=== PATIENT | female | born 1985 | race Asian ===

== ENCOUNTER 2019-04-06 12:10 | Inpatient (IN) | payer OTHER ==
[2019-04-06] MEDS ORDERED: ELECTROLYTE-148 SOLN 1,000 ML IV SCH (12:30)
[2019-04-06 13:27] VITALS: BMI 39.4
[2019-04-06 13:37] LABS: BASO % 0.2 % (0-2.0); HEMATOCRIT 36.6 % (32.4-45.2); HEMOGLOBIN 12.4 GM/dL (10.7-15.3); LYMPH % 11.1 % (8-40); MCH 29.9 pg (25.7-33.7); MCHC 33.8 g/dl (32.0-36.0); MEAN CELL VOLUME 88.3 fl (80-96); MEAN PLT VOLUME 9.9 fl (7.5-11.1); MONO % 8.6 % (3.8-10.2); NEUT % 79.1 % (42.8-82.8); PLATELET COUNT 255 K/MM3 (134-434); RBC 4.14 M/mm3 (3.60-5.2); RDW 14.3 % (11.6-15.6); WHITE BLOOD COUNT 12.9 K/mm3 (4.0-10.0)
[2019-04-06] MEDS ORDERED: OXYTOCIN 30 UNITS in 0.9% NS 30 UNIT/500 ML INFUS.BAG IVPB ONE (13:44)
[2019-04-06] MEDS ORDERED: OXYTOCIN 30 UNITS in 0.9% NS 30 UNIT/500 ML INFUS.BAG IVPB SCH (13:45)
[2019-04-06 13:51] LABS: BLOOD UREA NITROGEN 11.1 mg/dL (7-18); CALCIUM 9.4 mg/dL (8.5-10.1); CREATININE 0.6 mg/dL (0.55-1.3); POTASSIUM 4.5 mmol/L (3.5-5.1)
[2019-04-06 13:56] LABS: INR 1.02 (0.83-1.09)
[2019-04-06 13:59] LABS: ACTIVATED PTT 29.6 SECONDS (25.2-36.5)
--- NOTE | 2019-04-06 16:04 | HP ---
Past Medical History - Admission History of Present Illness: 34 yo @ 38 2/7 wks by first trimester ultrasound, EDC 04/18/2019 complicated by: 1. Obesity, starting BMI 36 19 lb wt gain 2. GDMA2 - diagnosed early GCT (suspect pregestational GDM) on Insulin NPH 60 qHS Most recent ultrasound 04/04/19 2980g (31%ile) She reports leakage of fluid today at 1000. She reports movement, denies vaginal bleeding. Reports contractions History Source: Patient Limitations to Obtaining History: No Limitations - Past Medical History Cardiovascular: No: HTN Pulmonary: No: Asthma ...: 1 ...Para: 0 ...Term: 0 ...: 0 ...Spon : 0 ...Induced : 0 ...Multiple Gestation: 0 ...LMP: 07/11/18 ... Weeks Gestation by Dates: 38.1 ...EDC by Dates: 04/17/19 ...EDC by Sono: 04/18/19 Endocrine: Yes: Diabetes Mellitus - Past Surgical History Past Surgical History: Yes: None Hx Myomectomy: No Hx Transabdominal Cerclage: No - Smoking History Smoking history: Never smoked Have you smoked in the past 12 months: No - Alcohol/Substance Use Hx Alcohol Use: No Home Medications - Allergies Allergies/Adverse Reactions: Allergies Allergy/AdvReac Type Severity Reaction Status Date / Time No Known Allergies Allergy Verified 04/06/19 15:20 - Home Medications Home Medications: Ambulatory Orders Insulin Detemir [Levemir Flextouch] See Protocol SQ PRN PRN 04/06/19 Vit No.129/Iron/Folic [ One Daily Tablet] 1 tab PO DAILY Family Disease History - Family Disease History Family History: Denies Review of Systems - Review of Systems Constitutional: reports: No Symptoms Neck: reports: No Symptoms Cardiovascular: reports: No Symptoms Respiratory: reports: No Symptoms Genitourinary: reports: No Symptoms Musculoskeletal: reports: No Symptoms Neurological: reports: No Symptoms Endocrine: reports: No Symptoms Psychiatric: reports: No Symptoms Physical Exam - Maternity Vital Signs: Vital Signs Temperature 97.9 F 04/06/19 14:00 Pulse Rate 74 04/06/19 14:00 Respiratory Rate 18 04/06/19 14:00 Blood Pressure 99/60 04/06/19 14:00 O2 Sat by Pulse Oximetry (%) Constitutional: Yes: Well Nourished, No Distress, Calm Cardiovascular: Yes: Regular Rate and Rhythm Lungs: Clear to auscultation - Physical Exam Psychiatric: Yes: Alert, Oriented - Labs Lab Results: CBC, BMP 04/06/19 13:00 04/06/19 13:00 PNL: AB Positive, antibody negativ; RPR NR; HIV neg; Varicella, Rubella Immune; HBs Ag neg; HCV neg; Hg Zoey AA; CF/SMA/Fx neg; GBS neg; early GCT pos (as above ) Hemorrhage Risk Assessment - Risk Factors Medium Risk Factors: Yes: None High Risk Factors: Yes: None Risk Score: 1 Risk Level: Medium Risk Assessment/Plan 34 yo GDM, PROM 1. Admit to L&D 2. GBS neg 3. Will check FS Q 4H then Q 2 in active labor Will cover with sliding scale if needed 4. Category I FHT 5. Will proceed with expectant management
[2019-04-06] MEDS ORDERED: PROMETHAZINE HCL 25 MG/1 ML VIAL ONE (20:37)
[2019-04-06] MEDS ORDERED: BUTORPHANOL TARTRATE 1 MG/ML VIAL ONE ×2 (20:37)
[2019-04-06] MEDS ORDERED: DEXTROSE 5%-LACTATED RINGERS 1,000 ML IV SCH (21:00)
[2019-04-06] MEDS ORDERED: PROMETHAZINE HCL 25 MG/1 ML VIAL IVPB ONE (21:00)
[2019-04-06] MEDS ORDERED: BUTORPHANOL TARTRATE 1 MG/ML VIAL IVPB ONE (21:00)
[2019-04-06] MEDS ORDERED: FENTANYL/BUPIVACAINE/NS/PF - PCEA - 50 ML DISP.SYRIN EP ONE (23:43)
[2019-04-06] MEDS ORDERED: FENTANYL/BUPIVACAINE/NS/PF - PCEA - 50 ML DISP.SYRIN EP SCH (23:45)
[2019-04-06] MEDS ORDERED: NALOXONE HCL 0.4 MG/ML VIAL IVPUSH PRN (23:58)
[2019-04-07] MEDS ORDERED: LIDO 2%/EPI 1:200000 PRESRVFRE (20 ML SDVIAL) ONE (00:02)
[2019-04-07] MEDS ORDERED: FENTANYL/BUPIVACAINE/NS/PF - PCEA - 50 ML DISP.SYRIN EP ONE ×2 (04:00→08:17)
[2019-04-07] MEDS ORDERED: AMPICILLIN - 2 GM in SODIUM CHLORIDE 100 ML IVPB ONE (05:33)
--- NOTE | 2019-04-07 05:33 | PN ---
Ante-Partal Exam - Subjective Subjective: Patient comfortable s/p epidural Vital Signs: Vital Signs Temperature 98.4 F 04/07/19 04:00 Pulse Rate 93 H 04/07/19 04:30 Respiratory Rate 20 04/07/19 04:30 Blood Pressure 115/73 04/07/19 04:30 O2 Sat by Pulse Oximetry (%) 100 04/07/19 04:30 Bleeding: No Headache: No Visual changes: No Right upper quadrant pain: No - Contractions Contractions: Yes Regularity: Regular Intensity: Unaware Monitor Mode: External - Exam during Labor Heart Rate: 145 Variability: Moderate Category: I Monitor Accelerations: Present Monitor Decelerations: None Exam: Vaginal Dilatation (cm): 8 Effacement (%): 90 Presentation: Vertex Station: -1 - Intrapartum Hemorrhage Risk Medium Risk Factors: None High Risk Factors: None Risk Score: 0 Risk Level: Low Risk - Assessment/Plan Assessment/Plan: 34 yo PROM, pitocin augmentation, good cervical change 1. continue pitocin per protocol 2. GBS negative, patient ROM > 18 hours, to start ampicillin per hospital protocol 3. Category I FHT 4. pain well controlled with epidural 5. Proceed with expectant management
[2019-04-07] MEDS ORDERED: OXYTOCIN 20 UNITS in 0.9% NS 20 UNIT/1,000 ML INFUS.BAG IV ONE ×2 (07:45→13:28)
[2019-04-07] MEDS ORDERED: AMPICILLIN - 1 GM in SODIUM CHLORIDE 100 ML IVPB SCH (09:34)
--- NOTE | 2019-04-07 11:51 | PROC ---
Obstetrical Vaccum Device - Doc. Following Use of Vaccum Device Indications for use: Maternal Exhaustion Risks and Benefits Explained: Yes Consent on Chart: Yes Station: 3 Molding: No Position: OA Caput: Yes Proper placement of cup confirmed: Yes Number of pulls: 1 Number of pop-offs: 0 Duration of time cup on head (min): 1 Maximum pressure attained: 20 Total time cup near/at maximum pressure (min): 1 Outcome: Appearance of head on delivery: Caput Comfort Filler present during vacuum extraction: Yes Comfort Filler & nursery staff notified of vacuum extraction: Yes
--- NOTE | 2019-04-07 11:51 | PN ---
Delivery - Delivery Vaginal Delivery: Vacuum Assist Type of Anesthesia: Epidural Episiotomy/Laceration: 3rd degree EBL (cc): 400 Delivery, Single - Stages of Labor Date 1st Stage Initiatied: 04/07/19 Time 1st Stage Initiated: 01:00 Date 2nd Stage Initiated: 04/07/19 Time 2nd Stage Initiated: 10:00 Date of Delivery: 04/07/19 Time of Delivery: 11:05 Date Placenta Delivered: 04/07/19 Time Placenta Delivered: 11:10 Placenta: Yes: Expressed - Condition of Gender: Male Weight: 6 lb 9 oz Total Hours ROM (Hrs/Mins): 25 hours 10 minutes - 1 Minute Total Score: 6 5 Minutes Total Score: 9 - Feeding Plan Initial Plan: Exclusive throughout hospitalization Remarks - Remarks Remarks: Patient progressed to fully dilated and at 1105 via Vacuum assistance, patient pushed to deliver a viable male in IVETTE position. Head delivered, nuchal cord noted and reduced, Right anterior shoulder found to be difficult to be delivered Mc Moon position and Minaya screw maneuver with delivery of the left shoulder anteriorly. Cord was clamped and cut infant handed to waiting NICU staff. Cord blood and gas collected and sent. Perineum and vagina examined, a third degree laceration was noted. Sphincter was grasped using allis clamps and reapproximated with 0-vicryl x 4 Sulcal lacerations were noted and repaired using 0 vicryl. Rectal exam revealed no sutures in rectum. Placenta was delivered spontaneously and intact. 20 units of pitocin in 1 L IVF was given. All counts correct x 2. Mother and infant stable in LDR. EBL 400cc.
[2019-04-07] MEDS ORDERED: BENZOCAINE 20% 57 GM BOTTLE TP PRN (11:58)
[2019-04-07] MEDS ORDERED: BISACODYL 10 MG SUPP.RECT RC PRN (11:58)
[2019-04-07] MEDS ORDERED: BENZOCAINE 28 GM HEMORRHOIDAL OINTMENT TP PRN (11:58)
[2019-04-07] MEDS ORDERED: WITCH HAZEL 50% (TUCKS) 40 PAD/JAR PAD TP PRN (11:58)
[2019-04-07] MEDS ORDERED: METHYLERGONOVINE MALEATE 0.2 MG/1 ML AMP IM PRN (11:58)
[2019-04-07] MEDS ORDERED: OXYTOCIN 20 UNITS in 0.9% NS 20 UNIT/1,000 ML INFUS.BAG IV SCH (14:15)
[2019-04-07] MEDS: ACETAMINOPHEN 325 MG TABLET (FP) PO PRN (16:43)
[2019-04-07] MEDS: IBUPROFEN 600 MG TABLET (FP) PO PRN (16:43)
[2019-04-07] MEDS: SENNOSIDES/DOCUSATE COMBO (SENNA PLUS) TABLET (UD) PO SCH (21:14)
[2019-04-08] MEDS: ACETAMINOPHEN 325 MG TABLET (FP) PO PRN ×2 (02:14→21:30)
[2019-04-08] MEDS: IBUPROFEN 600 MG TABLET (FP) PO PRN ×2 (02:14→21:31)
--- NOTE | 2019-04-08 07:04 | PN ---
Post Progress Note - Subjective Subjective: Patient without acute complaints. Reports tolerating oral intake without nausea or vomiting. Ambulating without dizziness. Denies fevers or chills. Pain well controlled with oral pain medication. Pumping without issue Passing flatus. Post Day: 1 Type of Delivery: Vacuum Assist Vag Del Vital Signs: Vital Signs Temperature 98.0 F 04/08/19 06:00 Pulse Rate 72 04/08/19 06:00 Respiratory Rate 20 04/08/19 06:00 Blood Pressure 116/68 04/08/19 06:00 O2 Sat by Pulse Oximetry (%) 99 04/07/19 09:45 Breast Exam: Yes: Soft Uterus: Yes: Fundus Firm Abdomen/GI: Yes: Abdomen soft, Passing flatus, Tolerating PO. No: Abdominal Distention, Tender Lochia: Yes: Rubra Lochia, amount: Moderate Extremities: Yes: Calves non-tender, Edema (trace) Perineum: Yes: Laceration Activity: Ambulating - Labs Labs: CBC WBC 12.9 K/mm3 (4.0-10.0) H 04/06/19 13:00 RBC 4.14 M/mm3 (3.60-5.2) 04/06/19 13:00 Hgb 12.4 GM/dL (10.7-15.3) 04/06/19 13:00 Hct 36.6 % (32.4-45.2) 04/06/19 13:00 MCV 88.3 fl (80-96) 04/06/19 13:00 MCH 29.9 pg (25.7-33.7) 04/06/19 13:00 MCHC 33.8 g/dl (32.0-36.0) 04/06/19 13:00 RDW 14.3 % (11.6-15.6) 04/06/19 13:00 Plt Count 255 K/MM3 (134-434) 04/06/19 13:00 MPV 9.9 fl (7.5-11.1) 04/06/19 13:00 Absolute Neuts (auto) 10.2 K/mm3 (1.5-8.0) H 04/06/19 13:00 Neutrophils % 79.1 % (42.8-82.8) 04/06/19 13:00 Lymphocytes % 11.1 % (8-40) 04/06/19 13:00 Monocytes % 8.6 % (3.8-10.2) 04/06/19 13:00 Eosinophils % 1.0 % (0-4.5) 04/06/19 13:00 Basophils % 0.2 % (0-2.0) 04/06/19 13:00 Nucleated RBC % 0 % (0-0) 04/06/19 13:00 Assessment/Plan 34yo PPD # 1 s/p VAVD, complicated by shoulder dystocia and third degree laceration, afebrile, vital signs stable 1. Continue routine care. 2. Follow up AM CBC 3. Rh positive status, no rhogam indicated. 4. GDM - suspect pregestational diabetes will f/u FS Plan for endocrine evaluation 5. Encourage ambulation 6. Continue oral pain medication, stool softeners Discussed importance to avoid constipation 7. Anticipate discharge home day #2
[2019-04-08 08:34] LABS: BASO % 0.5 % (0-2.0); HEMOGLOBIN 11.2 GM/dL (10.7-15.3); LYMPH % 12.6 % (8-40); MCH 30.4 pg (25.7-33.7); MEAN CELL VOLUME 89.4 fl (80-96); MEAN PLT VOLUME 9.7 fl (7.5-11.1); MONO % 7.1 % (3.8-10.2); NEUT % 78.8 % (42.8-82.8); PLATELET COUNT 256 K/MM3 (134-434); RBC 3.69 M/mm3 (3.60-5.2); WHITE BLOOD COUNT 19.4 K/mm3 (4.0-10.0)
[2019-04-08] MEDS: PRENATAL VITAMINS W/ FOLIC ACID TABLET (FP) PO SCH (09:41)
[2019-04-08] MEDS: SENNOSIDES/DOCUSATE COMBO (SENNA PLUS) TABLET (UD) PO SCH (21:32)
[2019-04-09 09:18] VITALS: BP 116/65; PULSE 77; TEMP 98.1
[2019-04-09] MEDS: PRENATAL VITAMINS W/ FOLIC ACID TABLET (FP) PO SCH (10:36)
--- NOTE | 2019-04-09 11:37 | PN ---
Post Progress Note - Subjective Subjective: Patient without complaints. Reports tolerating oral intake without nausea or vomiting. Ambulating without dizziness. Denies fevers or chills. Pain well controlled with oral pain medication. Pumping without issue Passing flatus and had BM w/o prob,ems Lochia light. Post Day: 2 Type of Delivery: Vacuum Assist Vag Del Vital Signs: Vital Signs Temperature 98.1 F 04/09/19 09:18 Pulse Rate 77 04/09/19 09:18 Respiratory Rate 18 04/09/19 09:18 Blood Pressure 116/65 04/09/19 09:18 O2 Sat by Pulse Oximetry (%) 99 04/07/19 09:45 Breast Exam: Yes: Soft Uterus: Yes: Fundus Firm, Fundus below umbilicus, Non-tender Abdomen/GI: Yes: Abdomen soft Lochia: Yes: Rubra Lochia, amount: Small Extremities: Yes: Calves non-tender Perineum: Yes: Intact, Laceration (intact repair) Activity: Ambulating - Labs Labs: CBC WBC 19.4 K/mm3 (4.0-10.0) H 04/08/19 08:11 RBC 3.69 M/mm3 (3.60-5.2) 04/08/19 08:11 Hgb 11.2 GM/dL (10.7-15.3) 04/08/19 08:11 Hct 33.0 % (32.4-45.2) 04/08/19 08:11 MCV 89.4 fl (80-96) 04/08/19 08:11 MCH 30.4 pg (25.7-33.7) 04/08/19 08:11 MCHC 34.0 g/dl (32.0-36.0) 04/08/19 08:11 RDW 14.0 % (11.6-15.6) 04/08/19 08:11 Plt Count 256 K/MM3 (134-434) 04/08/19 08:11 MPV 9.7 fl (7.5-11.1) 04/08/19 08:11 Absolute Neuts (auto) 15.3 K/mm3 (1.5-8.0) H 04/08/19 08:11 Neutrophils % 78.8 % (42.8-82.8) 04/08/19 08:11 Lymphocytes % 12.6 % (8-40) 04/08/19 08:11 Monocytes % 7.1 % (3.8-10.2) 04/08/19 08:11 Eosinophils % 1.0 % (0-4.5) 04/08/19 08:11 Basophils % 0.5 % (0-2.0) 04/08/19 08:11 Nucleated RBC % 0 % (0-0) 04/08/19 08:11 Assessment/Plan 34yo PPD #2 s/p VAVD, complicated by shoulder dystocia and third degree laceration, afebrile, vital signs stable 1. Continue routine care. 2. Hg stable and WNL 3. GDM - FSG in normal range. Pt was advised to check at home and f/u with 2-hr glucose test. 4. Encourage ambulation 5. Continue oral pain medication, 6. Encourage stool softeners. Discussed importance to avoid constipation 7. Discharge home today. Discharge instructions reviewed.
--- NOTE | 2019-04-09 11:51 | DS ---
Physical Exam-[facility] Vital Signs: Vital Signs Temperature 98.1 F 04/09/19 09:18 Pulse Rate 77 04/09/19 09:18 Respiratory Rate 18 04/09/19 09:18 Blood Pressure 116/65 04/09/19 09:18 O2 Sat by Pulse Oximetry (%) 99 04/07/19 09:45 Constitutional: Yes: Well Nourished, No Distress, Calm Eyes: Yes: WNL, Conjunctiva Clear HENT: Yes: WNL, Atraumatic, Normocephalic Neck: Yes: WNL, Supple, Trachea Midline Cardiovascular: Yes: WNL, Regular Rate and Rhythm Respiratory: Yes: WNL, Regular, CTA Bilaterally Gastrointestinal: Yes: WNL, Normal Bowel Sounds, Soft ...Rectal Exam: Yes: Deferred Renal/: Yes: WNL Breast(s): Yes: WNL Musculoskeletal: Yes: WNL Extremities: Yes: WNL Edema: Yes Edema: LLE: Trace, RLE: Trace Integumentary: Yes: WNL Neurological: Yes: WNL, Alert, Oriented ...Motor Strength: WNL Psychiatric: Yes: WNL, Alert, Oriented Labs: CBC, BMP 04/08/19 08:11 04/06/19 13:00 Delivery - Delivery Vaginal Delivery: Shoulder/Difficult, Vacuum Assist Type of Anesthesia: Epidural Episiotomy/Laceration: 3rd degree EBL (cc): 400 Delivery, Single - Stages of Labor Date 1st Stage Initiatied: 04/07/19 Time 1st Stage Initiated: 01:00 Date 2nd Stage Initiated: 04/07/19 Time 2nd Stage Initiated: 10:00 Date of Delivery: 04/07/19 Time of Delivery: 11:05 Time Placenta Delivered: 11:10 Placenta: Yes: Expressed - Condition of Performance Management Consultant/Lens Inserter Present: Yes Name: Ciera Wang Gender: Male Weight: 2.977 kg Position: Right, OA Total Hours ROM (Hrs/Mins): 25 hours 10 minutes - 1 Minute Total Score: 6 5 Minutes Total Score: 9 - Feeding Plan Initial Plan: Exclusive throughout hospitalization Benefits of Exclusively reinforced: Yes Remarks - Remarks Remarks: 3rd degree OB laceration repaired Discharge Summary Reason For Visit: LABOR ADMISSION Current Active Problems Third degree laceration of perineum during delivery, (Acute) Vacuum-assisted vaginal delivery (Acute) Procedures: Principal: Vacuume assisted vaginal delivery Other Procedures: 3rd degree OB laceration repaired Hospital Course: Normal recovery Condition: Good - Instructions Diet, Activity, Other Instructions: Physical activity Resume your normal everyday activity as tolerated no heavy lifting or exercise until seen by your surgeon. You may walk unlimited hoang of and climb stairs. You may resume driving the car when you feel safe and comfortable behind the wheel. No sexual activity as instructed. Diet There are no dietary restrictions. Eat healthy, high-fiber foods. Drink 6 to 8 glasses of liquid each day. This will assist in keeping your bowels are regular. Pain management You may take Tylenol or acetaminophen or Ibuprofen (for example, Motrin, Advil etc.) from my pain prescription medication is ordered should be taken as prescribed for moderate to severe pain. Call MD for any of the following: Severe pain not relieved by medication Fever of 101 or higher Excessive bleeding or drainage on dressing Inability to urinate Referrals: Georgina Enriquez MD [Staff Physician] - Maureen Modi MD [Staff Physician] - Disposition: HOME - Home Medications Comprehensive Discharge Medication List: Ambulatory Orders Insulin Detemir [Levemir Flextouch] See Protocol SQ PRN PRN 04/06/19 Vit No.129/Iron/Folic [ One Daily Tablet] 1 tab PO DAILY
== END 2019-04-09 14:05 | disposition home or self-care (01) | DRG 768 ==
LOC: JLDR 12:10 → J3W 04-07 14:15
PROVIDERS: ADMIT Obstetrics & Gynecology; ATTEND Obstetrics & Gynecology
PROC: 10D07Z6 Extraction of Products of Conception, Vacuum, Via Natural or Artificial Opening (ICD-10-PCS; principal; 2019-04-07)
PROC: 0DQR0ZZ Repair Anal Sphincter, Open Approach (ICD-10-PCS; 2019-04-07)
PROC: 0W8NXZZ Division of Female Perineum, External Approach (ICD-10-PCS; 2019-04-07)
DX: O70.20 Third degree perineal laceration during delivery, unspecified (principal); Z37.0 Single live birth; O99.214 Obesity complicating childbirth; O24.424 Gestational diabetes mellitus in childbirth, insulin controlled; O66.0 Obstructed labor due to shoulder dystocia; Z3A.38 38 weeks gestation of pregnancy
CPT/HCPCS: 36415; 36600; 59409; 80048; 82803; 82962; 85025; 85610; 85730; 86593; 86850; 86900; 86901